=== PATIENT | female | born 1960 | race Caucasian/White ===

== ENCOUNTER 2025-02-26 06:58 | Day surgery (SDC) | payer OTHER ==
[2025-02-26] MEDS ORDERED: Propofol 200 MG/20 ML SDV IV ONE (06:59)
[2025-02-26] MEDS ORDERED: Sodium Chloride 0.9% 10 ML Syringe FLUSH PRN (07:00)
[2025-02-26] MEDS: Lactated Ringers 1,000 ML IV SCH (07:41)
== END 2025-02-26 09:29 | disposition home or self-care (01) ==
LOC: FB.SDS 06:58
PROVIDERS: ATTEND Surgery
DX: Z12.11 Encounter for screening for malignant neoplasm of colon (principal); K57.30 Diverticulosis of large intestine without perforation or abscess without bleeding; R19.5 Other fecal abnormalities; Z80.0 Family history of malignant neoplasm of digestive organs; Z79.899 Other long term (current) drug therapy
CPT/HCPCS: 45378; A9270; J2704; J7120; 00811